=== PATIENT | male | born 1995 | race Caucasian/White ===

== ENCOUNTER 2020-03-30 16:17 | Emergency (ER) | payer OTHER, SELFPAY ==
--- NOTE | ~2020-03-30 | XR_ITS ---
EXAMINATION: XR chest 2V DATE: 03/30/2020 17:08 INDICATION: Cough and fever TECHNIQUE: PA and lateral views of the chest are obtained. COMPARISON: 07/22/2017 FINDINGS: The lungs are free of acute opacities. There is no pleural effusion or pneumothorax. The ca rdiomediastinal silhouette is normal. The visualized bones and soft tissues are unremarkable. IMPRESSION: 1. No acute cardiopulmonary abnormality. Reviewed, dictated and finalized at location [facility]. [facility]
[2020-03-30 16:39] VITALS: BP 111/62; PULSE 104; RESP 18; TEMP 38.1; O2SAT 99
--- NOTE | 2020-03-30 17:06 | ED.GENADULT ---
HPI - General Adult General Chief complaint: Upper Respiratory Infection Stated complaint: URI Time Seen by Provider: 03/30/20 17:00 Source: patient and RN notes reviewed Mode of arrival: ambulatory Limitations: no limitations History of Present Illness HPI narrative: 24-year-old male presents with complaints of upper respiratory infection symptoms, fever, sore throat, cough, intermittent dyspnea and headaches (not the worst of his life) for the past 3 days. Juan reports increasing symptoms over the past 24 hours with increase sore throat, decrease po intake, and high fever. No treatment. Dry cough with intermittent productive cough (yellow-brown phlegm). No chest congestion. Rhinorrhea and nasal congestion. Exacerbating factors consist of swallowing. High fevers, highest 100.5 Fahrenheit, orally with intermittent chills and sweats. No nausea, vomiting, and abdominal pain. Denies chest pain, coughing up blood, jaw pain, dental pain, facial pain, foreign body sensation, and rash. The patient reports he have not been diagnosed with COVID-19. The patient reports he is not waiting for the results of a COVID-19 lab test. The patient reports he do not have weakness or fatigue. The patient reports he do not have a worsening cough. Denies chest pain. The patient reports he do not have any loss of taste or diarrhea. Denies recent traveling. Denies concerns for COVID-19 or exposures been home with limited outdoor exposure except for essential household needs and return home. At this time, patient is not suspected of having COVID-19. Some parts of this dictation were generated by voice recognition software and may contain typographical and/or grammatical inaccuracies. Related Data Allergies Allergy/AdvReac Type Severity Reaction Status Date / Time No Known Allergies Allergy Verified 03/30/20 16:59 Review of Systems Review of Systems: Narrative: CONSTITUTIONAL: Complains of fever. Denies chills, sweats. EYES: Denies visual changes, redness, discharge. ENT: Complains of rhinorrhea, congestion, sore throat. Denies otalgia. CARDIOVASCULAR: Denies chest pain, palpitations, edema. RESPIRATORY: Denies wheezing. Complains of dry cough, intermittent productive cough use. GASTROINTESTINAL: Denies abdominal pain, nausea, vomiting, diarrhea. GENITOURINARY: Denies dysuria, hematuria, abnormal discharge. SKIN: Denies rash or itching. MUSCULOSKELETAL: Denies acute back pain, joint pain, myalgia. NEUROLOGIC: Denies numbness or focal weakness. PSYCHIATRIC: Denies anxiety or depression. All systems reviewed & are unremarkable except as noted in HPI and below PMFSH Past Medical History Medical History (Updated 03/31/20 @ 00:00 by Manuel Dalulu) Anxiety Depression Insomnia disorder Surgical History Surgical History (Updated 03/30/20 @ 17:21 by DOREEN Watkins) No significant past surgical history Family History Family History (Updated 03/30/20 @ 17:52 by DOREEN Watkins) Father Hypertension Mother Hypertension Social History Social History (Updated 03/30/20 @ 17:53 by DOREEN Watkins) Smoking packs per day: 1 Smoking cigarettes per day: 20.0 Years smoked: 8 Smoking pack-years: 8.00 Smoking status: Current every day smoker Tobacco type: cigarettes Second hand tobacco smoke exposure: Yes Alcohol intake: current Substance use: never Additional living arrangements comments: fianc? Gender identity (if verbalized by the patient): Male Comments At time of signature, agree with nurse past medical, surgical, social, and family history. There is no relevant family history pertinent to the presenting complaint. Exam Narrative: Exam Narrative: GENERAL: This is a undernourished, frail frame patient, in no apparent distress. Speaks in full sentences and ambulates with steady gait without dyspnea. HEAD: normocephalic, atraumatic. EYES: PERRL. Sclera clear/white. Vision
== END 2020-03-30 17:47 | disposition home or self-care (01) ==
PROVIDERS: Emergency Provider Nurse Practitioner Family; PCP Physician Assistant
DX: B34.9 Viral infection, unspecified (principal); Z20.828 Contact with and (suspected) exposure to other viral communicable diseases; F17.210 Nicotine dependence, cigarettes, uncomplicated
CPT/HCPCS: 71046; 87081; 87804; 87880; 99213; G0463

== ENCOUNTER 2021-01-15 14:14 | Emergency (ER) | payer BC, MEDICAID, SELFPAY ==
[2021-01-15 14:23] VITALS: BP 115/82; PULSE 86; RESP 16; TEMP 36.9; O2SAT 100
--- NOTE | 2021-01-15 14:33 | ED.URI ---
HPI - URI/Sore Throat General Chief Complaint: Upper Respiratory Infection Stated Complaint: sore throat, feverish Time Seen by Provider: 01/15/21 14:35 Source: patient History of Present Illness HPI Narrative: PATIENT PRESENTS WITH A 3 DAY HISTORY OF SORE THROAT. NASAL CONGESTION AND BODY ACHES. STATES BODY ACHES HAVE RESOLVED. CONTINUES TO HAVE A SORE THROAT. NO TROUBLE SWALLOWING AND NO DROOLING. HAS NOT TAKEN ANYTHING OTC FOR SYMPTOMS. MD elicited complaint: sore throat Related Data Home Medications Medication Instructions Recorded Confirmed No Home Medications 01/15/21 01/15/21 Allergies Allergy/AdvReac Type Severity Reaction Status Date / Time No Known Allergies Allergy Verified 01/15/21 14:41 Review of Systems Review of Systems: CONSTITUTIONAL: Denies fever, chills, or sweats. EYES: Denies visual changes, redness, or discharge. ENT: Denies rhinorrhea, congestion, sore throat, or otalgia. CARDIOVASCULAR: Denies chest pain, palpitations, or edema. RESPIRATORY: Denies cough or dyspnea. GASTROINTESTINAL: Denies abdominal pain, nausea, vomiting, or diarrhea. GENITOURINARY: Denies dysuria or hematuria. SKIN: Denies rash or itching. MUSCULOSKELETAL: Denies back pain, joint pain, or myalgia. NEUROLOGIC: Denies headache, numbness, or weakness. PSYCHIATRIC: Denies anxiety or depression. [facility] Past Medical History Medical History (Updated 01/15/21 @ 14:38 by DOREEN Andrea) Anxiety Depression Insomnia disorder Surgical History Surgical History (Updated 03/30/20 @ 17:21 by DOREEN Watkins) No significant past surgical history Family History Family History (Updated 03/30/20 @ 17:52 by DOREEN Watkins) Father Hypertension Mother Hypertension Social History Social History (Updated 03/30/20 @ 17:53 by DOREEN Watkins) Smoking packs per day: 1 Smoking cigarettes per day: 20.0 Years smoked: 8 Smoking pack-years: 8.00 Smoking status: Current every day smoker Tobacco type: cigarettes Second hand tobacco smoke exposure: Yes Alcohol intake: current Alcohol use details: rarely Substance use: never Additional living arrangements comments: fianc? Gender identity (if verbalized by the patient): Male Sexual Orientation (if Verbalized by the Patient): Straight or Heterosexual Comments At time of signature, agree with nursing past medical, surgical, social and family history. There is no relevant family history pertinent to the presenting complaint Exam Narrative: GENERAL: Well-appearing, well-nourished, and in no acute distress. HEAD: Normocephalic, atraumatic. EYES: PERRLA and EOMI. ENT: Nares clear, no rhinorrhea or epistaxis. Mucous membranes moist. NECK: Supple. CHEST: Clear to auscultation. No respiratory distress. HEART: Regular rate and rhythm. No murmur heard. Normal peripheral pulses. ABDOMEN: Soft, nontender, nondistended, normal active bowel sounds. EXTREMITIES: Normal range of motion. No edema. SKIN: Warm, dry, no rash. NEURO: No focal deficits. Alert and oriented x3. Rachele Coma Scale Eye Opening: Spontaneous 4 [place] Coma Scale Motor: Obeys Commands 6 [place] Coma Scale Verbal: Oriented 5 [place] Coma Scale Total 15 Course Vital Signs Vital signs: Vital Signs Temperature 36.9 C 01/15/21 14:23 Pulse Rate 86 01/15/21 14:23 Respiratory Rate 16 01/15/21 14:23 Blood Pressure 115/82 01/15/21 14:23 Pulse Oximetry 100 01/15/21 14:23 Temperature 36.9 C 01/15/21 14:23 Pulse Rate 86 01/15/21 14:23 Respiratory Rate 16 01/15/21 14:23 Blood Pressure 115/82 01/15/21 14:23 Pulse Oximetry 100 01/15/21 14:23 MDM - URI/Sore Throat Differential Diagnosis Differential diagnosis: Likely upper respiratory infection, croup, otitis media, sinusitis, viral infection, bronchitis, influenza and pharyngitis Critical Care Time Critical Care Time Critical Care Time: No Discharge Plan Disc
[2021-01-15 14:42] VITALS: BP 115/82; PULSE 86; RESP 16; TEMP 36.9; O2SAT 100
[2021-01-16 17:42] LABS: SARS-CoV-2 RNA PCR Negative
== END 2021-01-15 14:49 | disposition home or self-care (01) ==
PROVIDERS: Emergency Provider Nurse Practitioner Family; PCP Physician Assistant
DX: J02.9 Acute pharyngitis, unspecified (principal); F17.210 Nicotine dependence, cigarettes, uncomplicated; Z20.822 Contact with and (suspected) exposure to COVID-19
CPT/HCPCS: 87081; 87880; 99213; C9803; G0463; U0003; U0005

== ENCOUNTER 2021-03-07 13:20 | Emergency (ER) | payer BC, MEDICAID, SELFPAY ==
[2021-03-07 13:30] VITALS: BP 102/65; PULSE 96; RESP 16; TEMP 37.5; O2SAT 99
--- NOTE | 2021-03-07 13:59 | ED.NAVMDI ---
HPI - Nausea/Vomiting/Diarrhea General Chief complaint: Nausea/Vomiting/Diarrhea Stated complaint: nausea dirahhea fever Source: patient and RN notes reviewed Mode of arrival: ambulatory History of Present Illness HPI Narrative: This is a 25-year-old male who presented to urgent care with complaints of nausea vomiting, diarrhea, decreased appetite and a fever. According to patient on Wednesday he developed the symptoms he did take ibuprofen and Tylenol at home to relieve his symptoms with no or little relief. Related Data Allergies Allergy/AdvReac Type Severity Reaction Status Date / Time No Known Allergies Allergy Verified 01/15/21 14:41 Review of Systems Review of Systems: A 14 organ system Review of Systems was performed and pertinent positives included in the HPI, otherwise remaining ROS is negative. [facility] Past Medical History Medical History Anxiety Depression Insomnia disorder Surgical History Surgical History No significant past surgical history Family History Family History Father Hypertension Mother Hypertension Social History Social History Smoking packs per day: 1 Smoking cigarettes per day: 20.0 Years smoked: 8 Smoking pack-years: 8.00 Smoking status: Current every day smoker Tobacco type: cigarettes Second hand tobacco smoke exposure: Yes Alcohol intake: current Alcohol use details: rarely Substance use: never Additional living arrangements comments: fianc? Gender identity (if verbalized by the patient): Male Sexual Orientation (if Verbalized by the Patient): Straight or Heterosexual Exam Narrative: GENERAL: This is a well-nourished, well-developed patient, in no apparent distress. HEAD: normocephalic, atraumatic. EYES: PERRL. Sclera clear/white. Vision is grossly intact. EARS: External ears normal, auditory canals clear and without drainage, TMs normal without perforation. Hearing grossly intact. NOSE: External nose normal with no obvious nasal discharge, nares without redness, no rhinorrhea. THROAT: Mucous membranes moist, posterior pharynx clear. NECK: Neck supple, non-tender without lymphadenopathy, masses or thyromegaly. CARDIOVASCULAR: Regular rate and rhythm without murmurs, gallops, or rubs. RESPIRATORY: Clear to auscultation. Breath sounds equal bilaterally. No wheezes, rales, or rhonchi. GASTROINTESTINAL: Abdomen soft, non-tender, nondistended. Bowel sounds are active. No hepato-splenomegaly, or palpable masses. No guarding. SKIN: warm, intact with no suspicious lesions or rash, good texture and turgor. NEURO: awake, alert, and oriented to person, place and time. There were no obvious focal neurologic abnormalities. Steady gait EXTREMITIES: Normal range of motion. No edema. No calf tenderness. Negative Homans sign bilaterally. BACK: Nontender without deformity or crepitance. No flank tenderness. Course Course Emergency Course: Patient treated for gastritis discharged with Imodium in Zofran instructed to remain hydrated Vital Signs Vital signs: Vital Signs Temperature 99.5 F 03/07/21 13:30 Pulse Rate 96 03/07/21 13:30 Respiratory Rate 16 03/07/21 13:30 Blood Pressure 102/65 03/07/21 13:30 Pulse Oximetry 99 03/07/21 13:30 Temperature 99.5 F 03/07/21 13:30 Pulse Rate 96 03/07/21 13:30 Respiratory Rate 16 03/07/21 13:30 Blood Pressure 102/65 03/07/21 13:30 Pulse Oximetry 99 03/07/21 13:30 MDM - Nausea/Vomiting/Diarrhea Differential Diagnosis Differential diagnosis: Likely gastroenteritis, clostridium difficile infection, drug-induced nausea and vomiting and dehydration Discharge Plan Discharge Clinical Impression: Gastroenteritis Patient Disposition: Home, Self-Care Condit
== END 2021-03-07 14:04 | disposition home or self-care (01) ==
PROVIDERS: Emergency Provider Nurse Practitioner; PCP Physician Assistant
DX: K52.9 Noninfective gastroenteritis and colitis, unspecified (principal); F17.210 Nicotine dependence, cigarettes, uncomplicated
CPT/HCPCS: 99213; G0463

== ENCOUNTER 2021-06-05 18:38 | Emergency (ER) | payer BC, MEDICAID, SELFPAY ==
--- NOTE | 2021-06-05 18:52 | ED.URI ---
HPI - URI/Sore Throat General Chief Complaint: Upper Respiratory Infection Stated Complaint: cough/cp/sore throat/weakness Time Seen by Provider: 06/05/21 18:52 Source: patient Mode of arrival: ambulatory Limitations: no limitations History of Present Illness HPI Narrative: 25 yo M presents with c/o sore throat that started last night. Today woke up with congestion, runny nose, cough, fatigue, headache. no fever. denies N/V/D. took tylenol this AM. all systems reviewed and negative except as noted above. Related Data Home Medications Medication Instructions Recorded Confirmed No Home Medications 06/05/21 06/05/21 Allergies Allergy/AdvReac Type Severity Reaction Status Date / Time No Known Allergies Allergy Verified 06/05/21 19:12 Review of Systems Review of Systems: CONSTITUTIONAL: Denies fever, chills, or sweats. EYES: Denies visual changes, redness, or discharge. ENT: Reports rhinorrhea, congestion, sore throat. Denies otalgia. CARDIOVASCULAR: Denies chest pain, palpitations, or edema. RESPIRATORY: Reports cough. Denies dyspnea. GASTROINTESTINAL: Denies abdominal pain, nausea, vomiting, or diarrhea. GENITOURINARY: Denies dysuria or hematuria. SKIN: Denies rash or itching. MUSCULOSKELETAL: Denies back pain, joint pain, or myalgia. NEUROLOGIC: Denies headache, numbness, or weakness. PSYCHIATRIC: Denies anxiety or depression. All other systems reviewed are negative, except as documented in HPI. [facility] Past Medical History Medical History Anxiety Depression Insomnia disorder Surgical History Surgical History No significant past surgical history Family History Family History Father Hypertension Mother Hypertension Social History Social History Smoking packs per day: 1 Smoking cigarettes per day: 20.0 Years smoked: 8 Smoking pack-years: 8.00 Smoking status: Current every day smoker Tobacco type: cigarettes Second hand tobacco smoke exposure: Yes Alcohol intake: current Alcohol use details: rarely Substance use: never Additional living arrangements comments: fisara? Gender identity (if verbalized by the patient): Male Sexual Orientation (if Verbalized by the Patient): Straight or Heterosexual Comments At time of signature, agree with nursing past medical, surgical, social and family history. There is no relevant family history pertinent to the presenting complaint. Exam Narrative: GENERAL: This is a well-nourished, well-developed patient, in no apparent distress. HEAD: normocephalic, atraumatic. EYES: PERRL. Sclera clear/white. Vision is grossly intact. EARS: External ears normal, auditory canals clear and without drainage, TMs normal without perforation. Hearing grossly intact. NOSE: External nose normal , nares without redness. Clear nasal drainage from both naris. THROAT: Mucous membranes moist. Erythema to posterior pharynx with clear postnasal drainage. NECK: Neck supple, non-tender without lymphadenopathy, masses or thyromegaly. CARDIOVASCULAR: Regular rate and rhythm without murmurs, gallops, or rubs. RESPIRATORY: Clear to auscultation. Breath sounds equal bilaterally. No wheezes, rales, or rhonchi. GASTROINTESTINAL: Abdomen soft, non-tender, nondistended. Bowel sounds are active. No hepato-splenomegaly, or palpable masses. No guarding. SKIN: warm, Dry, intact with no suspicious lesions or rash, good texture and turgor. NEURO: awake, alert, and oriented to person, place and time. There were no obvious focal neurologic abnormalities. EXTREMITIES: No joint tenderness, effusion, or edema noted. No calf tenderness. Negative Homans sign bilaterally. BACK: Nontender without deformity. No CVA tenderness. Course Course Level of Care: Expr
[2021-06-05 18:53] VITALS: BP 129/78; PULSE 88; RESP 16; TEMP 37.1; O2SAT 100
== END 2021-06-05 19:36 | disposition home or self-care (01) ==
PROVIDERS: Emergency Provider Nurse Practitioner Family; PCP Physician Assistant
DX: J06.9 Acute upper respiratory infection, unspecified (principal); Z20.822 Contact with and (suspected) exposure to COVID-19; F17.210 Nicotine dependence, cigarettes, uncomplicated
CPT/HCPCS: 87426; 87804; 99213; C9803; G0463

== ENCOUNTER 2021-08-24 12:54 | Emergency (ER) | payer BC, MEDICAID, SELFPAY ==
[2021-08-24 12:59] VITALS: BP 131/79; PULSE 110; RESP 16; TEMP 38.3; O2SAT 100
--- NOTE | 2021-08-24 13:07 | ED.URI ---
HPI - URI/Sore Throat General Chief Complaint: Upper Respiratory Infection Stated Complaint: fever chest pain with cough Time Seen by Provider: 08/24/21 13:02 Source: patient Mode of arrival: ambulatory Limitations: no limitations History of Present Illness HPI Narrative: Mr. Aldana is a 26-year-old male patient presenting to the clinic today with complaints of fever, cough, sore throat, .and chest discomfort with cough x3 days. He reports he has had exposure to his son who is has bronchitis. No known exposure to anyone with COVID, strep, or influenza Related Data Allergies Allergy/AdvReac Type Severity Reaction Status Date / Time No Known Allergies Allergy Verified 08/24/21 13:18 Review of Systems Review of Systems: Pertinent positives per HPI. Patient denies any, rash, headache, visual changes, dizziness, runny nose, sore throat, shortness of breath, palpitations, nausea, vomiting, diarrhea, constipation, abdominal pain, or any urinary issues. PMFSH Past Medical History Medical History Anxiety Depression Insomnia disorder Surgical History Surgical History No significant past surgical history Family History Family History Father Hypertension Mother Hypertension Social History Social History Smoking packs per day: 1 Smoking cigarettes per day: 20.0 Years smoked: 8 Smoking pack-years: 8.00 Smoking status: Current every day smoker Tobacco type: cigarettes Second hand tobacco smoke exposure: Yes Alcohol intake: current Alcohol use details: rarely Substance use: never Additional living arrangements comments: fianc? Gender identity (if verbalized by the patient): Male Sexual Orientation (if Verbalized by the Patient): Straight or Heterosexual Comments At the time of my signature, I reviewed and agree with the nursing past medical, surgical, social, and family history. There is no relevant family history pertinent to the patient complaint. Exam Narrative: General: Well-developed, well nourished, mildly ill-appearing Head: Normocephalic, atraumatic Eyes: Pupils equally round and reactive to light bilaterally, EOM intact, sclera and conjunctive clear, no discharge, lids normal Ears: TMs intact and clear, ear canals clear, no drainage, grossly hearing normal. Nose: Nares patent, clear nasal discharge, mild inflammation, no sinus tenderness. Mouth: Oropharynx without lesions or masses, good dentition, MMM. Oropharynx red Neck: Supple, trachea midline, mild enlargement of anterior cervical nodes, no thyroid masses or goiter palpable. Cardio: Regular rate and rhythm, s1 and s2 normal, no murmur appreciated. Resp: Clear to auscultation bilaterally anteriorly and posteriorly, no rhonchi, rales, wheezing or rubs Course Course Emergency Course: Portions of this record may have been created with voice recognition software. Level of Care: Express Care Visit Vital Signs Vital signs: Vital Signs Temperature 38.3 C H 08/24/21 12:59 Pulse Rate 110 H 08/24/21 12:59 Respiratory Rate 16 08/24/21 12:59 Blood Pressure 131/79 08/24/21 12:59 Pulse Oximetry 100 08/24/21 12:59 Oxygen Delivery Room Air 08/24/21 12:59 Temperature 38.3 C H 08/24/21 12:59 Pulse Rate 110 H 08/24/21 12:59 Respiratory Rate 16 08/24/21 12:59 Blood Pressure 131/79 08/24/21 12:59 Pulse Oximetry 100 08/24/21 12:59 Oxygen Delivery Room Air 08/24/21 12:59 Vital signs reviewed MDM - URI/Sore Throat MDM Narrative Medical decision making narrative: At the time of visit patient is resting comfortably on the exam table. Strep test was completed and was positive in the clinic. Patient had negative COVID testing and influenza testing. I w
== END 2021-08-24 13:30 | disposition home or self-care (01) ==
PROVIDERS: Emergency Provider Nurse Practitioner Family; PCP Internal Medicine
DX: J02.0 Streptococcal pharyngitis (principal); Z20.822 Contact with and (suspected) exposure to COVID-19; F17.210 Nicotine dependence, cigarettes, uncomplicated
CPT/HCPCS: 87426; 87804; 87880; 99213; C9803; G0463

== ENCOUNTER 2021-12-01 11:53 | Emergency (ER) | payer BC, MEDICAID, SELFPAY ==
[2021-12-01 12:01] VITALS: BP 114/70; PULSE 108; RESP 16; TEMP 37.3; O2SAT 100
--- NOTE | 2021-12-01 12:26 | ED.URI ---
HPI - URI/Sore Throat General Chief Complaint: Upper Respiratory Infection Stated Complaint: congestion cough fever Time Seen by Provider: 12/01/21 12:17 Source: patient, RN notes reviewed and old records reviewed Mode of arrival: ambulatory Limitations: no limitations History of Present Illness HPI Narrative: 26 year od male accompanied by and child presents to express care with complaints of cough, fevers, and congestion. Patient reports that he had fever up to 101.7F last evening and today he had fever of 101.3F and has been taking ibuprofen and flonase. Patient states that he has had cough with congestion for 2 weeks is cough up some yellow tinged mucous and sinus drainage is also colored. Patient has not had COVID vaccinations. Patient is daily smoker of 1ppd for 10 years. MD elicited complaint: fever, cough, rhinorrhea and nasal congestion Onset (ago): week(s) (2) Treatments prior to arrival: ibuprofen and other (flonase) Related Data Allergies Allergy/AdvReac Type Severity Reaction Status Date / Time No Known Allergies Allergy Verified 12/01/21 12:20 Review of Systems Review of Systems: CONSTITUTIONAL: Positive for fever, chills, or sweats. EYES: Denies visual changes, redness, or discharge. ENT: Positive for rhinorrhea, congestion, no sore throat, or otalgia. CARDIOVASCULAR: Denies chest pain, palpitations, or edema. RESPIRATORY: Positive for cough denies dyspnea. GASTROINTESTINAL: Denies abdominal pain, nausea, vomiting, or diarrhea. GENITOURINARY: Denies dysuria or hematuria. SKIN: Denies rash or itching. MUSCULOSKELETAL: Denies back pain, joint pain, or myalgia. NEUROLOGIC: Denies headache, numbness, or weakness. PSYCHIATRIC:history of anxiety or depression. All systems reviewed & are unremarkable except as noted in HPI and below PMFSH Past Medical History Medical History Anxiety Depression Insomnia disorder Surgical History Surgical History No significant past surgical history Family History Family History Father Hypertension Mother Hypertension Social History Social History (Updated 12/03/21 @ 19:54 by Jie Agosto NP) Smoking packs per day: 1 Smoking cigarettes per day: 20.0 Years smoked: 10 Smoking pack-years: 10.00 Smoking status: Current every day smoker Tobacco type: cigarettes Second hand tobacco smoke exposure: Yes Alcohol intake: current Alcohol use details: rarely Substance use: never Living arrangements: with family Additional living arrangements comments: fianc? Gender identity (if verbalized by the patient): Male Sexual Orientation (if Verbalized by the Patient): Straight or Heterosexual Comments At time of signature, agree with nursing past medical, surgical, social and family history. There is no relevant family history pertinent to the presenting complaint Exam Narrative: GENERAL: ill-appearing, fair-nourished, and in no acute distress. HEAD: Normocephalic, atraumatic. EYES: PERRLA and EOMI. ENT: Nares red and swollen with yellowish rhinorrhea no epistaxis. Mucous membranes moist.TM's normal with dull light reflex, throat red with no lesions or tosnil swelling post nasal discharge noted NECK: Supple. no lymphadenopathy CHEST: scattered wheezes on auscultation. No respiratory distress.cough which is productive. SAO2 100% on room air HEART: Regular rate and rhythm. No murmur heard. Normal peripheral pulses. ABDOMEN: Soft and nontender, nondistended, normal active bowel sounds. EXTREMITIES: Normal range of motion. No edema. SKIN: Warm, dry, no rash. NEURO: No focal deficits. Alert and oriented x3. Course Course Level of Care: Express Care Visit Vital Signs Vital signs: Vital Signs Temperature 37.3 C 12/01/21 12:01 Pulse Rate 108 H 12/01/21 12:01 Re
--- NOTE | 2021-12-01 12:46 | ED.URI ---
HPI - URI/Sore Throat General Chief Complaint: Upper Respiratory Infection Stated Complaint: congestion cough fever Time Seen by Provider: 12/01/21 12:17 Source: patient, RN notes reviewed and old records reviewed Mode of arrival: ambulatory Limitations: no limitations History of Present Illness HPI Narrative: Cough intermittent fevers Related Data Allergies Allergy/AdvReac Type Severity Reaction Status Date / Time No Known Allergies Allergy Verified 12/01/21 12:20 Review of Systems Review of Systems: CONSTITUTIONAL: Denies fever, chills, or sweats. EYES: Denies visual changes, redness, or discharge. ENT: Denies rhinorrhea, congestion, sore throat, or otalgia. CARDIOVASCULAR: Denies chest pain, palpitations, or edema. RESPIRATORY: Denies cough or dyspnea. GASTROINTESTINAL: Denies abdominal pain, nausea, vomiting, or diarrhea. GENITOURINARY: Denies dysuria or hematuria. SKIN: Denies rash or itching. MUSCULOSKELETAL: Denies back pain, joint pain, or myalgia. NEUROLOGIC: Denies headache, numbness, or weakness. PSYCHIATRIC: Denies anxiety or depression. [facility] Past Medical History Medical History Anxiety Depression Insomnia disorder Surgical History Surgical History No significant past surgical history Family History Family History Father Hypertension Mother Hypertension Social History Social History (Updated 12/03/21 @ 19:54 by Jie Agosto NP) Smoking packs per day: 1 Smoking cigarettes per day: 20.0 Years smoked: 10 Smoking pack-years: 10.00 Smoking status: Current every day smoker Tobacco type: cigarettes Second hand tobacco smoke exposure: Yes Alcohol intake: current Alcohol use details: rarely Substance use: never Living arrangements: with family Additional living arrangements comments: fianc? Gender identity (if verbalized by the patient): Male Sexual Orientation (if Verbalized by the Patient): Straight or Heterosexual Comments At time of signature, agree with nursing past medical, surgical, social and family history. There is no relevant family history pertinent to the presenting complaint Exam Narrative: GENERAL: Well-appearing, well-nourished, and in no acute distress. HEAD: Normocephalic, atraumatic. EYES: PERRLA and EOMI. ENT: Nares clear, no rhinorrhea or epistaxis. Mucous membranes moist. NECK: Supple. CHEST: Clear to auscultation. No respiratory distress. HEART: Regular rate and rhythm. No murmur heard. Normal peripheral pulses. ABDOMEN: Soft, nontender, nondistended, normal active bowel sounds. EXTREMITIES: Normal range of motion. No edema. SKIN: Warm, dry, no rash. NEURO: No focal deficits. Alert and oriented x3. Course Vital Signs Vital signs: Vital Signs Temperature 37.3 C 12/01/21 12:01 Pulse Rate 108 H 12/01/21 12:01 Respiratory Rate 16 12/01/21 12:01 Blood Pressure 114/70 12/01/21 12:01 Pulse Oximetry 100 12/01/21 12:01 Oxygen Delivery Room Air 12/01/21 12:01 Temperature 37.3 C 12/01/21 12:01 Pulse Rate 108 H 12/01/21 12:01 Respiratory Rate 16 12/01/21 12:01 Blood Pressure 114/70 12/01/21 12:01 Pulse Oximetry 100 12/01/21 12:01 Oxygen Delivery Room Air 12/01/21 12:01 Critical Care Time Critical Care Time Critical Care Time: No Discharge Plan Discharge Clinical Impression: Upper respiratory infection, Bronchitis Patient Disposition: Home, Self-Care Condition: Stable Instructions: Antibiotic Form, Upper Respiratory Infection (ED), Acute Bronchitis (ED) Additional Instructions: Increase fluids especially juices and water [id number] cough and cold medicine of your choice for your symptoms Continue your inhaler/nebulizer as directed Steroids as directed--take with food heat to the face 20
== END 2021-12-01 12:55 | disposition home or self-care (01) ==
PROVIDERS: Emergency Provider Registered Nurse; PCP Physician Assistant
DX: J06.9 Acute upper respiratory infection, unspecified (principal); J40 Bronchitis, not specified as acute or chronic; F17.210 Nicotine dependence, cigarettes, uncomplicated
CPT/HCPCS: 99213; G0463

== ENCOUNTER 2021-12-05 18:34 | Emergency (ER) | payer BC, MEDICAID, SELFPAY ==
--- NOTE | ~2021-12-05 | XR_ITS ---
EXAMINATION: XR chest 2V DATE: 12/05/2021 18:52 INDICATION: Cough and fever TECHNIQUE: PA and lateral views of the chest were obtained. COMPARISON: Chest radiograph dated 03/30/2020 FINDINGS: Subtle airspace opacities in the inferior right upper lobe along the minor fissure and at the right l maida base at the costophrenic angle. No other airspace opacities, pulmonary edema, pleural effusion or pneumothorax. The cardiomediastinal silhouette is normal. Visualized bones and soft tissues are unre markable. IMPRESSION: 1. New opacities in the right upper lobe and at the right costophrenic angle which could represent pn eumonia or atelectasis. Reviewed, dictated and finalized at location A. IMPRESSION: 1. New opacities in the right upper lobe and at the right costophrenic angle wh ich could represent pneumonia or atelectasis.
[2021-12-05 18:40] VITALS: BP 114/75; PULSE 103; RESP 16; TEMP 37.4; O2SAT 100
--- NOTE | 2021-12-05 19:01 | ED.URI ---
HPI - URI/Sore Throat General Chief Complaint: Upper Respiratory Infection Stated Complaint: uri Source: patient and RN notes reviewed Mode of arrival: ambulatory Limitations: no limitations History of Present Illness HPI Narrative: 26-year-old male presented for complaint of cough, shortness of breath and chest congestion for about 2 weeks. He was [facility], diagnosed with bronchitis and prescribed him erythromycin, steroid and inhaler. He endorses feeling better for a few days but then symptoms worsened. He admits to not completing the steroids as directed. Endorses intermittent fevers. MD elicited complaint: cough Related Data Allergies Allergy/AdvReac Type Severity Reaction Status Date / Time No Known Allergies Allergy Verified 12/05/21 18:55 Review of Systems Review of Systems: CONSTITUTIONAL: Reports malaise, chills, sweats, fever EYES: Denies visual changes, redness, or discharge ENT: Reports rhinorrhea, congestion, sinus pain, otalgia, sore throat CARDIOVASCULAR: Denies chest pain, palpitations, edema RESPIRATORY: Reports cough, dyspnea GASTROINTESTINAL: Denies abdominal pain, nausea, vomiting, diarrhea SKIN: Denies rash or itching MUSCULOSKELETAL: Endorses myalgia NEUROLOGIC: Denies headache PMFSH Past Medical History Medical History Anxiety Depression Insomnia disorder Surgical History Surgical History No significant past surgical history Family History Family History Father Hypertension Mother Hypertension Social History Social History Smoking packs per day: 1 Smoking cigarettes per day: 20.0 Years smoked: 10 Smoking pack-years: 10.00 Smoking status: Current every day smoker Tobacco type: cigarettes Second hand tobacco smoke exposure: Yes Alcohol intake: current Alcohol use details: rarely Substance use: never Additional living arrangements comments: fianc? Gender identity (if verbalized by the patient): Male Sexual Orientation (if Verbalized by the Patient): Straight or Heterosexual Exam Narrative: GENERAL: well-appearing EYES: conjunctivae clear ENT: Mucous membranes moist. TMs pearly aly with dull light reflex bilaterally; no tragal tenderness. Oropharynx erythematous without lesions or exudate, no drooling, no hoarseness, no trismus, uvula midline. CHEST: Right lung lowry coarse. No respiratory distress, speaks in full sentences. HEART: Regular rate and rhythm. No murmur heard. SKIN: Warm, dry, no rash. NEURO: Alert and oriented x3. PSYCH: Normal mood and affect Course Course Emergency Course: Patient is aware of diagnosis, understands and agrees to treatment plan. Anticipatory guidance given. Patient agrees to follow-up as directed and is aware of reasons to seek care at the emergency department. Portions of this record may have been created with voice recognition software Level of Care: Express Care Visit Vital Signs Vital signs: Vital Signs Temperature 99.3 F 12/05/21 18:40 Pulse Rate 103 H 12/05/21 18:40 Respiratory Rate 16 12/05/21 18:40 Blood Pressure 114/75 12/05/21 18:40 Pulse Oximetry 100 12/05/21 18:40 Oxygen Delivery Room Air 12/05/21 18:40 Temperature 99.3 F 12/05/21 18:40 Pulse Rate 103 H 12/05/21 18:40 Respiratory Rate 16 12/05/21 18:40 Blood Pressure 114/75 12/05/21 18:40 Pulse Oximetry 100 12/05/21 18:40 Oxygen Delivery Room Air 12/05/21 18:40 reviewed MDM - URI/Sore Throat MDM Narrative Medical decision making narrative: Results of CXR reviewed with pt. Will add course of doxy and treat for pna. v/u. He informed me he did not fill the previously prescribed steroid, took a few of his girlfriend's prednisone 10mg tablets. Will send Rx
== END 2021-12-05 19:20 | disposition home or self-care (01) ==
PROVIDERS: Emergency Provider Nurse Practitioner Family
DX: J18.1 Lobar pneumonia, unspecified organism (principal); F17.210 Nicotine dependence, cigarettes, uncomplicated
CPT/HCPCS: 71046; 99213; G0463

== ENCOUNTER 2022-10-21 17:11 | Emergency (ER) | payer BC, MEDICAID, SELFPAY ==
--- NOTE | ~2022-10-21 | XR_ITS ---
EXAMINATION: XR chest 2V 10/21/2022 18:18 INDICATION: Cough PROCEDURE: 2 view chest COMPARISON: 12/05/2021 FINDINGS: The lungs are clear. The cardiomediastinal silhouette is within normal limits. There are no pleural effusions. There is no pneumothorax suspected. IMPRESSION: 1: NO ACUTE CARDIOPULMONARY DISEASE. Reviewed, dictated and finalized at location A.
[2022-10-21 17:16] VITALS: BP 113/67; PULSE 99; RESP 18; TEMP 36.7; O2SAT 98
--- NOTE | 2022-10-21 18:08 | ED.URI ---
HPI - URI/Sore Throat General Chief Complaint: Upper Respiratory Infection Stated Complaint: cough/hurts to cough Source: patient and RN notes reviewed History of Present Illness HPI Narrative: 27-year-old male presents to the [facility] complaining of cough, fever, chest pain. Patient stated about 8 days ago he developed a cough, congestion, sore throat. Since then the cough and congestion has got worsened states it has moved into his chest. Patient states he has constant chest pain that he describes as congestion in his chest. Patient states the pain is worse when he takes a deep breath and when he coughs. Patient denies any shortness of breath. Patient does report congestion to his nose and still having a sore throat. States he is coughing yellow tinged sputum as well and states that he had a 100.3 fever that he took ibuprofen for it. Patient states he is a pack-a-day smoker for the last 10 years has history of pneumonia. Related Data Allergies Allergy/AdvReac Type Severity Reaction Status Date / Time No Known Allergies Allergy Verified 10/21/22 17:32 Review of Systems Review of Systems: CONSTITUTIONAL: Denies fever, chills, or sweats. EYES: Denies visual changes, redness, or discharge. ENT: Denies otalgia. Positive for nasal congestion and sore throat. CARDIOVASCULAR: Positive for chest pain. Negative for palpitations or edema. RESPIRATORY: Positive for coughing negative for dyspnea. GASTROINTESTINAL: Denies abdominal pain, nausea, vomiting, or diarrhea. GENITOURINARY: Denies dysuria or hematuria. SKIN: Denies rash or itching. MUSCULOSKELETAL: Denies back pain, joint pain, or myalgia. NEUROLOGIC: Denies headache, numbness, or weakness. Pertinent positives per HPI. [facility] Past Medical History Medical History Anxiety Depression Insomnia disorder Surgical History Surgical History No significant past surgical history Family History Family History Father Hypertension Mother Hypertension Social History Social History Smoking packs per day: 1 Smoking cigarettes per day: 20.0 Years smoked: 10 Smoking pack-years: 10.00 Smoking status: Current every day smoker Tobacco type: cigarettes Second hand tobacco smoke exposure: Yes Alcohol intake: current Alcohol use details: rarely Substance use: never Living arrangements: with family Additional living arrangements comments: fianc? Occupation/Education: occupation Gender identity (if verbalized by the patient): Male Sexual Orientation (if Verbalized by the Patient): Straight or Heterosexual Comments At the time of my signature, I reviewed and agree with the nursing past medical, surgical, social, and family history. There is no relevant family history pertinent to the patient complaint. Exam Narrative: GENERAL: This is a well-nourished, well-developed patient, in no apparent distress. HEAD: normocephalic, atraumatic. EYES: Sclera clear/white. Vision is grossly intact. EARS: External ears normal, auditory canals clear and without drainage, TMs normal without perforation. Hearing grossly intact. NOSE: External nose normal with no obvious nasal discharge, nares with minor erythema, no rhinorrhea. THROAT: Mucous membranes moist, posterior pharynx erythemic with postnasal drip. NECK: Neck supple, non-tender without lymphadenopathy, masses or thyromegaly. CARDIOVASCULAR: Regular rate and rhythm without murmurs, gallops, or rubs. RESPIRATORY: There is slight wheezing to the left upper posterior lobe to auscultation. All other lobes are vesicular without abnormal breath sounds. Breath sounds equal bilaterally. GASTROINTESTINAL: Abdomen soft, non-tender, nondistended. Bowel sounds are active. No hepato-s
== END 2022-10-21 18:45 | disposition home or self-care (01) ==
PROVIDERS: Emergency Provider Nurse Practitioner Family; PCP Physician Assistant
DX: J40 Bronchitis, not specified as acute or chronic (principal); F17.210 Nicotine dependence, cigarettes, uncomplicated; F41.9 Anxiety disorder, unspecified; F32.A Depression, unspecified
CPT/HCPCS: 71046; 99213; G0463

== ENCOUNTER 2023-03-28 13:15 | Emergency (ER) | payer BC, MEDICAID, SELFPAY ==
[2023-03-28 13:34] VITALS: BP 113/78; PULSE 99; RESP 16; TEMP 37.1; O2SAT 98
--- NOTE | 2023-03-28 13:53 | ED.GENADULT ---
HPI - General Adult General Chief complaint: Upper Respiratory Infection Stated complaint: fever/cough/headache/achey Source: patient, RN notes reviewed and old records reviewed Mode of arrival: ambulatory Limitations: no limitations History of Present Illness HPI narrative: 27-year-old male patient presents to [facility] with complaints cough, congestion, myalgia, fever this started Wednesday night. Patient denies shortness of breath, chest pain, dizziness, weakness. Patient taking [id number] medications with little relief MD complaint: cough, congestion Onset (ago): day(s) (2) Related Data Allergies Allergy/AdvReac Type Severity Reaction Status Date / Time No Known Allergies Allergy Verified 10/21/22 17:32 Review of Systems Constitutional: Constitutional: Reports no additional constitutional complaints, Reports body ache(s), Denies chills, Reports fatigue, Reports fever(s) and Denies headache(s) Eyes: Eyes: Reports no additional eye complaints and Denies blurry vision ENT: Reports system reviewed and no additional complaints, except as documented, Denies vertigo, Denies dizziness, Denies ear discharge, Denies otalgia, Denies facial pain, Denies headache(s), Reports nasal congestion, Reports nasal discharge, Denies sinus pain, Denies sinus pressure and Denies sore throat Cardiovascular: Cardiovascular: Reports no additional cardiovascular complaints, Denies chest pain, Denies chest pain at rest, Denies rapid heart rate and Denies dyspnea Respiratory: Respiratory: Reports no additional respiratory complaints, Reports chest congestion, Reports cough, Denies pain on inspiration, Denies pain with cough and Denies dyspnea Gastrointestinal: Gastrointestinal: Denies abdominal pain, Denies diarrhea, Denies nausea and Denies vomiting Integumentary/Breasts: Skin/Breast: Denies rash Neurologic: Reports system reviewed and no additional complaints, except as documented, Denies vertigo, Denies dizziness and Denies headache(s) Endocrine: Endocrine: Denies fatigue PMFSH Past Medical History Medical History Anxiety Depression Insomnia disorder Surgical History Surgical History No significant past surgical history Family History Family History Father Hypertension Mother Hypertension Social History Social History Smoking packs per day: 1 Smoking cigarettes per day: 20.0 Years smoked: 10 Smoking pack-years: 10.00 Smoking status: Current every day smoker Tobacco type: cigarettes Second hand tobacco smoke exposure: Yes Alcohol intake: current Alcohol use details: rarely Substance use: never Living arrangements: with family Additional living arrangements comments: fianc? Occupation/Education: occupation Gender identity (if verbalized by the patient): Male Sexual Orientation (if Verbalized by the Patient): Straight or Heterosexual Comments At the time of my signature, I reviewed and agree with the nursing past medical, surgical, social, and family history. There is no relevant family history pertinent to the patient complaint. Exam Const: General: cooperative, healthy appearing, no acute distress and well nourished Nutritional Appearance: well nourished Orientation/consciousness: patient oriented x3 Limitations: no limitations HENMT: Head: normal to inspection and normocephalic Ears: external ears normal, TM's normal bilaterally, mastoids normal and Abnormal EAC present Face/Nose/Sinus: normal facial exam Face and sinus: normal facial exam Mouth: Yes Normal oral and palatal mucosa present, Yes oropharynx normal and Yes moist mucous membranes Throat: tonsils normal, uvula midline, posterior oropharynx abnormal erythema and no uvular edema Eyes: General: appearan
== END 2023-03-28 14:05 | disposition home or self-care (01) ==
PROVIDERS: Emergency Provider Registered Nurse; PCP Physician Assistant
DX: J10.1 Influenza due to other identified influenza virus with other respiratory manifestations (principal); F17.210 Nicotine dependence, cigarettes, uncomplicated; Z20.822 Contact with and (suspected) exposure to COVID-19
CPT/HCPCS: 87426; 87804; 99213; C9803; G0463

== ENCOUNTER 2024-01-18 16:46 | Emergency (ER) | payer SELFPAY ==
[2024-01-18 16:52] VITALS: BP 128/82; PULSE 96; RESP 16; TEMP 36.8; O2SAT 99
--- NOTE | 2024-01-18 17:17 | ED.URI ---
HPI - URI/Sore Throat General Chief Complaint: Upper Respiratory Infection Stated Complaint: Sore Throat/Chest Congestion/Fever Time Seen by Provider: 01/18/24 17:10 Source: patient, RN notes reviewed and old records reviewed Mode of arrival: ambulatory Limitations: no limitations History of Present Illness HPI Narrative: 28 year old male presents to [place] [facility] with complaints of 2-3 day history of acute cough with congestion and expectoration of yellow phlegm. He reports that he also has a sore throat and hs been having intermittent fevers. Patient reports that he has had a headache and has some body aches with general malaise. Patient reports that he has been taking Ibuprofen for his symptoms. MD elicited complaint: cough and sore throat Onset (ago): day(s) (3) Pain scale (0-10): 4 Able to tolerate fluids by mouth: Yes Treatments prior to arrival: ibuprofen Related Data Allergies Allergy/AdvReac Type Severity Reaction Status Date / Time No Known Allergies Allergy Verified 01/18/24 16:50 Review of Systems Review of Systems: CONSTITUTIONAL: Reports malaise, chills, sweats, or fever. EYES: Denies visual changes, redness, or discharge. ENT: Reports rhinorrhea, congestion, sinus pain, no otalgia and positive for sore throat. CARDIOVASCULAR: Denies chest pain, palpitations, or edema. RESPIRATORY: Reports cough.? Denies dyspnea. GASTROINTESTINAL: Denies abdominal pain, nausea, vomiting, diarrhea SKIN: Denies rash or itching. MUSCULOSKELETAL: Reports myalgia. NEUROLOGIC: Reports headache. All systems reviewed & are unremarkable except as noted in HPI and below PMFSH Past Medical History Medical History Anxiety Back pain Bronchitis Depression Insomnia disorder Surgical History Surgical History No significant past surgical history Family History Family History Father Hypertension Mother Hypertension Social History Social History Smoking packs per day: 1 Smoking cigarettes per day: 20.0 Years smoked: 10 Smoking pack-years: 10.00 Smoking status: Current every day smoker Tobacco type: cigarettes Second hand tobacco smoke exposure: Yes Alcohol intake: current Alcohol use details: rarely Substance use: never Living arrangements: with family Additional living arrangements comments: fianc? Occupation/Education: occupation Gender identity (if verbalized by the patient): Male Sexual Orientation (if Verbalized by the Patient): Straight or Heterosexual Comments At time of signature, agree with nursing past medical, surgical, social and family history. There is no relevant family history pertinent to the presenting complaint Exam Narrative: GENERAL: Well-appearing, well-nourished, and in no acute distress. HEAD: Normocephalic EYES: PERRLA, conjunctivae clear ENT: Nares clear, turbinates edematous and erythematous, clear discharge. Mucous membranes moist. TM pearly aly with dull light reflex bilaterally; no tragal tenderness. Oropharynx erythematous without lesions. Tonsils not enlarged and without exudate, no drooling, no hoarseness, no trismus, uvula midline.post nasal drainage NECK: Supple. No lymphadenopathy CHEST: Clear to auscultation, breath sounds equal. No wheezing, rhonchi, rales, or stridor. No respiratory distress, speaks in full sentences.productive cough SAO2 99% on room air HEART: Regular rate and rhythm. No murmur heard. SKIN: Warm, dry, no rash. NEURO: Alert and oriented x3. PSYCH: Normal mood and affect Course Course Emergency Course: Patient is aware of diagnosis, understands and agrees to treatment plan.? Anticipatory guidance given.? Patient agrees to follow-up as directed and is aware of reasons to seek ca
[2024-01-18 17:25] LABS: EDCOVIDSCREEN Negative (Negative); EDSTREPNEGPOS1 Negative (Negative)
[2024-01-18 17:26] LABS: EDINFLUASCREEN Negative (Negative); EDINFLUBSCREEN Negative (Negative)
== END 2024-01-18 17:51 | disposition home or self-care (01) ==
PROVIDERS: Emergency Provider Registered Nurse; PCP Physician Assistant
DX: R05.9 Cough, unspecified (principal); J06.9 Acute upper respiratory infection, unspecified; Z20.822 Contact with and (suspected) exposure to COVID-19; F17.210 Nicotine dependence, cigarettes, uncomplicated
CPT/HCPCS: 87081; 87426; 87804; 87880; 99213; G0463

== ENCOUNTER 2024-04-09 11:34 | Emergency (ER) | payer SELFPAY ==
[2024-04-09 11:38] VITALS: BP 107/75; PULSE 99; RESP 20; TEMP 36.4; O2SAT 99
--- NOTE | 2024-04-09 11:49 | ED_ITS ---
HPI - URI/Sore Throat General Chief Complaint: Upper Respiratory Infection Stated Complaint: cough/nose/fever/headache Time Seen by Provider: 04/09/24 11:49 Source: patient and RN notes reviewed Mode of arrival: ambulatory Limitations: no limitations History of Present Illness HPI Narrative: 28 year old male who presents to express care with complaints of 5 day history of cough, nasal drainage and headache. Patient reports that he started running a fever last night and did have fever this morning of 101F, has taken some Ibuprofen for his discomfort and fevers. Patient reports that his chest hurts some when he coughs and has stuffy nose with some expectoration of yellow mucous and feels achy. Patient is daily user of tobacco. MD elicited complaint: fever, cough, rhinorrhea, nasal congestion and other (headache and feels achy.) Onset (ago): day(s) (initial symptoms 5 days now fevers since yesterday) Consistency: constant Severity: moderate Description of mucous: yellow Able to tolerate fluids by mouth: Yes Treatments prior to arrival: ibuprofen Related Data Allergies Allergy/AdvReac Type Severity Reaction Status Date / Time No Known Allergies Allergy Verified 01/18/24 16:50 Review of Systems Review of Systems: CONSTITUTIONAL: Reports malaise, chills, sweats, or fever. EYES: Denies visual changes, redness, or discharge. ENT: Reports rhinorrhea, congestion, sinus pain, no otalgia and sore throat. CARDIOVASCULAR: Denies chest pain, palpitations, or edema. RESPIRATORY: Reports cough.? Denies dyspnea. some chest discomfort with cough GASTROINTESTINAL: Denies abdominal pain, nausea, vomiting, diarrhea SKIN: Denies rash or itching. MUSCULOSKELETAL:Reports myalgia. NEUROLOGIC: Reports headache. All systems reviewed & are unremarkable except as noted in HPI and below PMFSH Past Medical History Medical History Back pain Insomnia disorder Depression Anxiety Bronchitis Surgical History Surgical History No significant past surgical history Family History Family History Father Hypertension Mother Hypertension Social History Social History Smoking packs per day: 1 Smoking cigarettes per day: 20.0 Years smoked: 10 Smoking pack-years: 10.00 Smoking status: Current every day smoker Tobacco type: cigarettes Second hand tobacco smoke exposure: Yes Alcohol intake: current Alcohol use details: rarely Substance use: never Living arrangements: with family Additional living arrangements comments: [place]? Occupation/Education: occupation Gender identity (if verbalized by the patient): Male Sexual Orientation (if Verbalized by the Patient): Straight or Heterosexual Comments At time of signature, agree with nursing past medical, surgical, social and family history. There is no relevant family history pertinent to the presenting complaint Exam Narrative: GENERAL: Well-appearing, well-nourished, and in no acute distress. HEAD: Normocephalic EYES: PERRLA, conjunctivae clear ENT: Nares clear, turbinates edematous and erythematous, clear discharge. Mucous membranes moist. TM pearly aly with dull light reflex bilaterally; no tragal tenderness. Oropharynx erythematous without lesions. Tonsils not enlarged and without exudate, no drooling, no hoarseness, no trismus, uvula midline.post nasal drainage noted. NECK: Supple. No lymphadenopathy CHEST: Coarse breath sounds bases on auscultation, breath sounds equal. No wheezing, rhonchi, rales, or stridor. No respiratory distress, speaks in full sentences, productive cough.SAO2 99% on room air HEART: Regular rate and rhythm. No murmur heard. SKIN: Warm, dry, no rash. NEURO: Alert and oriented x3. PSYCH: Normal mood and affect Course Course Emergency Course: Patient is aware of diagnosis, understands and agrees to treatment plan.? Anticipatory guidance given.? Patient agrees to follow-up as directed and is aware of reasons to seek care at the emergency department. Portions of this record may have been created with voice recognition software Level of Care: Express Care Visit Vital Signs Vital signs: Vital Signs Temperature 36.4 C 04/09/24 11:38 Pulse Rate 99 04/09/24 11:38 Respiratory Rate 20 04/09/24 11:38 Blood Pressure 107/75 04/09/24 11:38 Pulse Oximetry 99 04/09/24 11:38 Oxygen Delivery Room Air 04/09/24 11:38 Temperature 36.4 C 01/12/25 11:38 Pulse Rate 99 04/09/24 11:38 Respiratory Rate 20 04/09/24 11:38 Blood Pressure 107/75 04/09/24 11:38 Pulse Oximetry 99 04/09/24 11:38 Oxygen Delivery Room Air 04/09/24 11:38 Reviewed MDM - URI/Sore Throat MDM Narrative Medical decision making narrative: Differential diagnosis considered: Silva virus, strep pharyngitis, allergic rhinitis, upper respiratory tract infection, sinusitis, rhinosinusitis, nasopharyngitis. viral pharyngitis, otitis media, otitis externa, pneumonia, bronchitis, viral cough syndrome, viral syndrome, and influenza.? Exam findings show no acute concerns or changes; patient is non-toxic appearing and is in no distress.? Patient is appropriate for outpatient treatment and follow-up. Differential Diagnosis Differential diagnosis: Likely upper respiratory infection, sinusitis, viral infection, bronchitis, influenza and other (COUGH, respiratory infection, tobacco abuse) Medical Records Attestation: I reviewed the patient's medical records. Lab Data Attestation: I reviewed the patient's lab results. Lab results narrative: influenza A negative, Influenza B negative, COVID antigen negative Critical Care Time Critical Care Time Critical Care Time: No Discharge Plan Discharge Clinical Impression: Respiratory infection, Cough in adult Patient Disposition: Home, Self-Care Condition: Stable Instructions: Antibiotic Form, Decongestant/Expectorant (By mouth), Acute Cough (ED) Additional Instructions: Increase fluids especially juices and water [id number] cough and cold medicine of your choice for your symptoms Tylenol or Ibuprofen for any pain or fever Zyrtec Claritin or Shanita daily include plain Sudafed for sinus drainage Steroids as directed--take with food heat to the face 20-30 minutes 4-6 times a day for pain Salt water gargles, throat lozenges or throat sprays as desired Antibiotic as directed--finished the medication If your symptoms persist, change or worsen significantly before you can contact your personal physician then please, without delay, go to the emergency department for further evaluation. Follow-up with PCP in 7-10 days or sooner if needed Monitor for fevers Patient Language: Romanian Prescriptions: New azithromycin 250 mg tablet See Rx Instructions .ROUTE .COMPLEX Qty: 6 0RF Rx Instructions: For 250 mg dose pack: take 500 mg today (day 1), then 250 mg for 4 days (days 2-5) prednisone 20 mg tablet 40 mg PO DAILY 5 Days Qty: 10 0RF Rx Instructions: take with food Follow-up/Referrals: Raissa,SHMUEL Doss [Primary Care Provider] - Time of Disposition: 12:17 Quality [place] Coma Scale Eyes: Open Verbal: Oriented and Alert Motor: Follows Commands [place] Coma Total Score: 15
[2024-04-09 12:24] LABS: EDCOVIDSCREEN Negative (Negative); EDINFLUASCREEN Negative (Negative); EDINFLUBSCREEN Negative (Negative)
== END 2024-04-09 12:24 | disposition home or self-care (01) ==
PROVIDERS: Emergency Provider Registered Nurse; PCP Physician Assistant
DX: J98.8 Other specified respiratory disorders (principal); R05.9 Cough, unspecified; Z20.822 Contact with and (suspected) exposure to COVID-19; F17.210 Nicotine dependence, cigarettes, uncomplicated
CPT/HCPCS: 87426; 87804; 99213; G0463

== ENCOUNTER 2024-05-30 08:33 | Emergency (ER) | payer SELFPAY ==
[2024-05-30 08:35] VITALS: BP 113/70; PULSE 94; RESP 20; TEMP 37.3; O2SAT 100
--- NOTE | 2024-05-30 09:25 | ED.GENADULT ---
HPI - General Adult General Chief complaint: Chest Pain Stated complaint: right side chest pain Time Seen by Provider: 05/30/24 09:25 Source: patient, RN notes reviewed and old records reviewed Mode of arrival: ambulatory Limitations: no limitations History of Present Illness HPI narrative: 28 year old male presents to [facility] care with complaints of having some right sided posterior neck pain for 3 days and today started having some right sided chest pain that radiates to his back. Patient reports that 4 days ago he was trying to see how many push ups he could do. Patient reports that it hurts to take a deep breath. Pain is reproducible with palpation to right mid chest region. Repirations are non labored with SAO2 100% on room air no tachypnea noted. Patient has not taken any OTC medications for his discomfort. Patient is daily smoker of 1ppd and also vapes. MD complaint: right chest sorenessd Onset (ago): day(s) (posterior neck pain 3 days and right chest discomfort this morning) Severity scale (1-10): 6 Quality: aching Treatments prior to arrival: none Related Data Allergies Allergy/AdvReac Type Severity Reaction Status Date / Time No Known Allergies Allergy Verified 05/30/24 08:55 Review of Systems Review of Systems: CONSTITUTIONAL: Denies fever, chills, or sweats. EYES: Denies visual changes, redness, or discharge. ENT: Denies rhinorrhea, congestion, sore throat, or otalgia. CARDIOVASCULAR: reports right sided chest pain,no palpitations, or edema. RESPIRATORY: Denies cough or dyspnea. GASTROINTESTINAL: Denies abdominal pain, nausea, vomiting, or diarrhea. GENITOURINARY: Denies dysuria or hematuria. SKIN: Denies rash or itching. MUSCULOSKELETAL: Denies back pain reports right sided neck pain, or myalgia. NEUROLOGIC: Denies headache, numbness, or weakness. PSYCHIATRIC: Denies anxiety or depression. All systems reviewed & are unremarkable except as noted in HPI and below PMFSH Past Medical History Medical History Back pain Insomnia disorder Depression Anxiety Bronchitis Surgical History Surgical History No significant past surgical history Family History Family History Father Hypertension Mother Hypertension Social History Social History Smoking packs per day: 1 Smoking cigarettes per day: 20.0 Years smoked: 10 Smoking pack-years: 10.00 Smoking status: Current every day smoker Tobacco type: cigarettes and e-cigarettes/vaping Second hand tobacco smoke exposure: Yes Alcohol intake: current Alcohol use details: rarely Substance use: never Living arrangements: with family Additional living arrangements comments: fianc? Occupation/Education: occupation Gender identity (if verbalized by the patient): Male Sexual Orientation (if Verbalized by the Patient): Straight or Heterosexual Comments At time of signature, agree with nursing past medical, surgical, social and family history. There is no relevant family history pertinent to the presenting complaint Exam Narrative: GENERAL: Well-appearing, well-nourished, and in no acute distress. HEAD: Normocephalic, atraumatic. EYES: PERRLA and EOMI. ENT: Nares clear, no rhinorrhea or epistaxis. Mucous membranes moist.TM's normal with good light reflex, throat pink with no swelling NECK: Supple. no lymphadenopathy, full ROM of neck with some aching discomfort to posterior right neck with no radiation CHEST: Clear to auscultation. No respiratory distress.no cough noted SAO2 100% on room air HEART: Regular rate and rhythm. No murmur heard. Normal peripheral pulses.reports some right sided chest pain which radiates to right side of back at times with increased pain with deep breath, pain is reproducible with palpation ABDOMEN: Soft, nontender, nondistended, normal active bowel sounds. EXTREMITIES: Normal range of motion. No edema. SKIN: Warm, dry, no rash. NEURO: No focal deficits. Alert and oriented x3. Course Course Emergency Course: Patient is aware of diagnosis, understands and agrees to treatment plan.? Anticipatory guidance given.? Patient agrees to follow-up as directed and is aware of reasons to seek care at the emergency department. Portions of this record may have been created with voice recognition software Level of Care: Express Care Visit Vital Signs Vital signs: Vital Signs Temperature 37.3 C 05/30/24 08:35 Pulse Rate 94 05/30/24 08:35 Respiratory Rate 20 05/30/24 08:35 Blood Pressure 113/70 05/30/24 08:35 Pulse Oximetry 100 05/30/24 08:35 Oxygen Delivery Room Air 05/30/24 08:35 Temperature 37.3 C 05/30/24 08:35 Pulse Rate 94 05/30/24 08:35 Respiratory Rate 20 05/30/24 08:35 Blood Pressure 113/70 05/30/24 08:35 Pulse Oximetry 100 05/30/24 08:35 Oxygen Delivery Room Air 05/30/24 08:35 Reviewed Medical Decision Making MDM Narrative Medical decision making narrative: Exam findings and imaging show no acute concerns or changes; patient is non-toxic appearing and is in no distress.? Patient is appropriate for outpatient treatment and follow-up Differential Diagnosis Differential Diagnosis: right neck strain, atypical chest pain right side, costochondritis. Vital Signs Vital Signs: Vital Signs Temperature 37.3 C 05/30/24 08:35 Pulse Rate 94 05/30/24 08:35 Respiratory Rate 20 05/30/24 08:35 Blood Pressure 113/70 05/30/24 08:35 Pulse Oximetry 100 05/30/24 08:35 Oxygen Delivery Room Air 05/30/24 08:35 Temperature 37.3 C 05/30/24 08:35 Pulse Rate 94 05/30/24 08:35 Respiratory Rate 20 05/30/24 08:35 Blood Pressure 113/70 05/30/24 08:35 Pulse Oximetry 100 05/30/24 08:35 Oxygen Delivery Room Air 05/30/24 08:35 Critical Care Time Critical Care Time Critical Care Time: No Discharge Plan Discharge Clinical Impression: Costochondritis, acute Strain of neck muscle Qualifiers: Encounter type: initial encounter Qualified Code(s): S16.1XXA - Strain of muscle, fascia and tendon at neck level, initial encounter Patient Disposition: Home, Self-Care Condition: Stable Instructions: Costochondritis (ED), Neck Pain (ED) Additional Instructions: Ice and heat to the area for 20-30 minutes Gentle stretching exercises Gentle massage Caution with lifting, bending, stooping, twisting Avoid pushing, pulling take muscle relaxants as directed--caution drowsiness and no driving or alcohol Anti-inflammatory medicine as directed--take with food He may take the muscle relaxant and anti-inflammatory at the same time Follow-up with your PCP if not improving in 5-7 days If your symptoms persist, change or worsen significantly before you can contact your personal physician then please, without delay, go to the emergency department for further evaluation. Follow-up with PCP in 7-10 days or sooner if needed Patient Language: Tajik Prescriptions: New prednisone 20 mg tablet 40 mg PO DAILY 5 Days Qty: 10 0RF cyclobenzaprine 10 mg tablet 10 mg PO HS PRN (Reason: muscle spasm) Qty: 10 0RF Follow-up/Referrals: Raissa,SHMUEL Doss [Primary Care Provider] - Stand Alone Forms: Work/School Release IP Time of Disposition: 09:38 Quality [place] Coma Scale Eyes: Open Verbal: Oriented and Alert Motor: Follows Commands [place] Coma Total Score: 15
== END 2024-05-30 09:45 | disposition home or self-care (01) ==
PROVIDERS: Emergency Provider Registered Nurse; PCP Physician Assistant
DX: M94.0 Chondrocostal junction syndrome [Tietze] (principal); S16.1XXA Strain of muscle, fascia and tendon at neck level, initial encounter; F41.8 Other specified anxiety disorders; F17.210 Nicotine dependence, cigarettes, uncomplicated; F17.290 Nicotine dependence, other tobacco product, uncomplicated
CPT/HCPCS: 99213; G0463

== ENCOUNTER 2024-08-07 17:26 | Emergency (ER) | payer SELFPAY ==
--- OUTSIDE RECORDS SUMMARY | 2024-08-07 17:31 | XMS_ITS | Clinical Summary ---
Author Organization [facility] Address [address] [place] [address] Phone Care Team Providers Care English As A Second Language Instructor Name Role Phone Unavailable Primary Care Provider Unavailabl e Allergies No known active allergies Medications promethazine-dex tromethorphan (PROMETHAZINE-DM ) 6.25-15 MG/5ML SyrupIndications :URI, acute Take 5 mL by mouth every 4 hours as needed for Cough. 240 mL 1 03/25/2016 Active Active Problems No known active problems Immunizations Immunization Administration Dates Next Due Meningococcal Vaccine 11/26/2008 TD VACCINE 11/26/2008 Social History Tobacco Use Types Packs/Day Years Used Date Smoking Tobacco: Every Day Smokeless Tobacco: Never Tobacco Cessation:Ready to Q uit: Yes; Counseling Given: Yes Alcohol Use Standard Drinks/Week Comments Yes 0 (1 standard drink = 0.6 oz pur e alcohol) socially Sexually Active Control Partners Comments Yes Sex and Gender Information Value Date Recorded Sex Assigned at Not on file Legal Sex Male 11:03 PM CDT Gender Identity Not on file Sexual Orientation Not on file Last Filed Vital Signs Vital Sign Reading Time Taken Comments Blood Pressure 100/60 03/25/2016 10:48 AM [facility] Pulse 68 03/25/2016 10:48 AM [facility] Temperature 37.4 C (99.4 F) 03/25/2016 10:48 AM [facility] Respiratory Rate 16 03/25/2016 10:48 AM [facility] Oxygen Saturation 98% 03/25/2016 10:48 AM [facility] Inhaled Oxygen Concentration - - Weight 50.3 kg (111 lb) 03/25/2016 10:48 AM [facility] Height 175.3 cm (5' 9 ) 03/25/2016 10:48 AM [facility] Body Mass Index 16.39 03/25/2016 10:48 AM [facility] Plan of Treatment Health Maintenance Due Date Last Done Comments Hepatitis C Virus (HCV) Screening 1993 TdaP Immunization 1993 Hepatitis B Immunization (1 of 3 - 19+ 3-dose series) 2012 Influenza Immunization (#1) 2023 SARS-COV-2 Immunization ( season) 2023 Respiratory Syncytial Virus (RSV) Immunization (Adult) (1 - 1-dose 75+ series) 2068 Meningococcal Immunization (ACWY) Aged Out 009 No longer eligible based on patient's age to complete this topic Pneumococcal Immunization Combined Aged Out No longer eligible based on patient's age to complete this topic Rotavirus Immunization Aged Out No lo nger eligible based on patient's age to complete this topic Insurance [facility]
[2024-08-07 17:36] VITALS: BP 116/77; PULSE 83; RESP 16; TEMP 36.8; O2SAT 100
[2024-08-07 17:51] LABS: EDSTREPNEGPOS1 Negative (Negative)
--- NOTE | 2024-08-07 18:17 | ED_ITS ---
HPI - URI/Sore Throat General Chief Complaint: Upper Respiratory Infection Stated Complaint: flu like symptoms Time Seen by Provider: 08/07/24 18:10 Source: patient, RN notes reviewed and old records reviewed Mode of arrival: ambulatory Limitations: no limitations History of Present Illness HPI Narrative: 29 year old male who presents to [facility] care with complaints of having 102F fever this morning having headache, body aches, cough with congestion since last night. Patient reports that he has had sore throat for the past 3 days. Patient reports that he took Ibuprofen this morning. Patient reports that son recently diagnosed with strep. MD elicited complaint: fever, cough, sore throat and other (body aches and headache) Onset (ago): day(s) (initial sore throat 3 days, cough congestion headache yesterday evening , this am fever) Consistency: progressively worsening Pain scale (0-10): 3 Able to tolerate fluids by mouth: Yes Treatments prior to arrival: ibuprofen Related Data Allergies Allergy/AdvReac Type Severity Reaction Status Date / Time No Known Allergies Allergy Verified 05/30/24 08:55 Review of Systems Review of Systems: CONSTITUTIONAL: reports malaise, chills, sweats, or fever. EYES: Denies visual changes, redness, or discharge. ENT: Reports rhinorrhea, congestion, no sinus pain, no otalgia and positive for sore throat. CARDIOVASCULAR: Denies chest pain, palpitations, or edema. RESPIRATORY: Reports cough.? Denies dyspnea. GASTROINTESTINAL: Denies abdominal pain, nausea, vomiting, diarrhea SKIN: Denies rash or itching. MUSCULOSKELETAL: Reports myalgia NEUROLOGIC: Reports headache. All systems reviewed & are unremarkable except as noted in HPI and below PMFSH Past Medical History Medical History Back pain Insomnia disorder Depression Anxiety Bronchitis Surgical History Surgical History No significant past surgical history Family History Family History Father Hypertension Mother Hypertension Social History Social History Smoking packs per day: 1 Smoking cigarettes per day: 20.0 Years smoked: 10 Smoking pack-years: 10.00 Smoking status: Current every day smoker Tobacco type: cigarettes and e-cigarettes/vaping Second hand tobacco smoke exposure: Yes Alcohol intake: current Alcohol use details: rarely Substance use: never Living arrangements: with family Additional living arrangements comments: [place]? Occupation/Education: occupation Gender identity (if verbalized by the patient): Male Sexual Orientation (if Verbalized by the Patient): Straight or Heterosexual Comments At time of signature, agree with nursing past medical, surgical, social and family history. There is no relevant family history pertinent to the presenting complaint Exam Narrative: GENERAL: Well-appearing, fair-nourished, and in no acute distress. HEAD: Normocephalic EYES: PERRLA, conjunctivae clear ENT: Nares clear, turbinates edematous and erythematous, clear discharge. Mucous membranes moist. TM pearly aly with dull light reflex bilaterally; no tragal tenderness. Oropharynx erythematous without lesions. Tonsils not enlarged and without exudate, no drooling, no hoarseness, no trismus, uvula midline and red, post nasal drainage. NECK: Supple. No lymphadenopathy CHEST: faint wheezing on auscultation, breath sounds equal.+ wheezing, no rhonchi, rales, or stridor. No respiratory distress, speaks in full sentences.SAO2 100% on room air cough productive at times HEART: Regular rate and rhythm. No murmur heard. SKIN: Warm, dry, no rash. NEURO: Alert and oriented x3. PSYCH: Normal mood and affect Course Course Emergency Course: Patient is aware of diagnosis, understands and agrees to treatment plan.? Anticipatory guidance given.? Patient agrees to follow-up as directed and is aware of reasons to seek care at the emergency department. Portions of this record may have been created with voice recognition software Level of Care: Express Care Visit Vital Signs Vital signs: Vital Signs Temperature 36.8 C 08/07/24 17:36 Pulse Rate 83 08/07/24 17:36 Respiratory Rate 16 08/07/24 17:36 Blood Pressure 116/77 08/07/24 17:36 Pulse Oximetry 100 08/07/24 17:36 Oxygen Delivery Room Air 08/07/24 17:36 Temperature 36.8 C 08/07/24 17:36 Pulse Rate 83 08/07/24 17:36 Respiratory Rate 16 08/07/24 17:36 Blood Pressure 116/77 08/07/24 17:36 Pulse Oximetry 100 08/07/24 17:36 Oxygen Delivery Room Air 08/07/24 17:36 Reviewed MDM - URI/Sore Throat MDM Narrative Medical decision making narrative: Differential diagnosis considered: Silva virus, strep pharyngitis, allergic rhinitis, upper respiratory tract infection, sinusitis, rhinosinusitis, nasopharyngitis. viral pharyngitis, otitis media, otitis externa, pneumonia, bronchitis, viral cough syndrome, viral syndrome, and influenza.? Exam findings show no acute concerns or changes; patient is non-toxic appearing and is in no distress.? Patient is appropriate for outpatient treatment and follow-up. Differential Diagnosis Differential diagnosis: Likely upper respiratory infection, viral infection, bronchitis, pharyngitis and other (strep pharyngitis, cough, tobacco abuse) Medical Records Attestation: I reviewed the patient's medical records. Lab Data Attestation: I reviewed the patient's lab results. Lab results narrative: strep screen negative culture sent Labs: Lab Results 08/07/24 Range/Units 17:35 POC Grp A Strep Screen Negative (Negative) reviewed Critical Care Time Critical Care Time Critical Care Time: No Discharge Plan Discharge Clinical Impression: Bronchitis Pharyngitis Qualifiers: Pharyngitis/tonsillitis etiology: unspecified etiology Qualified Code(s): J02.9 - Acute pharyngitis, unspecified Patient Disposition: Home Condition: Stable Instructions: Antibiotic Form, Pharyngitis (ED), Acute Bronchitis (ED) Additional Instructions: Increase fluids especially juices and water [id number] cough and cold medicine of your choice for your symptoms Zyrtec, Claritin, or Shanita daily Continue your inhaler/nebulizer as directed Steroids as directed--take with food heat to the face 20-30 minutes 4-6 times a day for pain Salt water gargles, throat lozenges or throat sprays as desired Antibiotic as directed--finish the medication If your symptoms persist, change or worsen significantly before you can contact your personal physician then please, without delay, go to the emergency de partment for further evaluation. Follow-up with PCP in 7-10 days or sooner if needed STOP SMOKING Patient Language: Icelandic Prescriptions: New prednisone 20 mg tablet 40 mg PO DAILY 5 Days Qty: 10 0RF azithromycin 250 mg tablet See Rx Instructions .ROUTE .COMPLEX Qty: 6 0RF Rx Instructions: For 250 mg dose pack: take 500 mg today (day 1), then 250 mg for 4 days (days 2-5) Follow-up/Referrals: Raissa,SHMUEL Doss [Primary Care Provider] - Stand Alone Forms: Work/School Release IP Time of Disposition: 18:30 Quality [place] Coma Scale Eyes: Open Verbal: Oriented and Alert Motor: Follows Commands [place] Coma Total Score: 15
== END 2024-08-07 18:36 | disposition home or self-care (01) ==
PROVIDERS: Emergency Provider Registered Nurse; PCP Physician Assistant
DX: J40 Bronchitis, not specified as acute or chronic (principal); J02.9 Acute pharyngitis, unspecified; F17.210 Nicotine dependence, cigarettes, uncomplicated; F17.290 Nicotine dependence, other tobacco product, uncomplicated
CPT/HCPCS: 87081; 87880; 99213; G0463

== ENCOUNTER 2025-03-19 14:59 | Emergency (ER) | payer SELFPAY ==
--- NOTE | ~2025-03-19 | XR_ITS ---
EXAMINATION: XR chest 2V 03/19/2025 15:29 INDICATION: Cough. Mid sternal chest/back pain with inspiration PROCEDURE: 2 view chest COMPARISON: Comparison to multiple prior studies sequentially, with oldest reviewed study dated 07/23/2027. FINDINGS: The lungs are clear. The cardiomediastinal silhouette is within normal limits. There are no pleural effusions. There is no pneumothorax suspected. IMPRESSION: 1: NO ACUTE CARDIOPULMONARY DISEASE. Reviewed, dictated and finalized at location O. R [employer]
--- NOTE | 2025-03-19 15:02 | ED_ITS ---
HPI - URI/Sore Throat General Chief Complaint: Upper Respiratory Infection Stated Complaint: Chest Congestion/Cough/Back Pain Time Seen by Provider: 03/19/25 15:02 Source: patient Mode of arrival: ambulatory Limitations: no limitations History of Present Illness HPI Narrative: Juan is a 29 year old male patient presenting to the clinic today with chest congestion, cough, and back pain x 1 day. He reports cough is non-productive. He vapes nicotine and THC. No URI symptoms. Midsternal chest discomfort and mid upper back pain with inspiration. Related Data Allergies Allergy/AdvReac Type Severity Reaction Status Date / Time No Known Allergies Allergy Verified 05/30/24 08:55 Review of Systems Review of Systems: Pertinent positives per HPI. Patient denies any fever, chills, rash, headache, visual changes, dizziness, shortness of breath, chest pain, palpitations, nausea, vomiting, diarrhea, constipation, abdominal pain, or any urinary issues. PMFSH Past Medical History Medical History Back pain Insomnia disorder Depression Anxiety Bronchitis Surgical History Surgical History No significant past surgical history Family History Family History Father Hypertension Mother Hypertension Social History Social History Smoking packs per day: 1 Smoking cigarettes per day: 20.0 Years smoked: 10 Smoking pack-years: 10.00 Smoking status: Current every day smoker Tobacco type: cigarettes and e-cigarettes/vaping Second hand tobacco smoke exposure: Yes Alcohol intake: current Alcohol use details: rarely Substance use: never Living arrangements: with family Additional living arrangements comments: fianc? Occupation/Education: occupation Gender identity (if verbalized by the patient): Male Sexual Orientation (if Verbalized by the Patient): Straight or Heterosexual Comments At the time of my signature, I reviewed and agree with the nursing past medical, surgical, social, and family history. There is no relevant family history pertinent to the patient complaint. Exam Narrative: General: Well-developed, well nourished, in no apparent distress Head: Normocephalic, atraumatic Eyes: Pupils equally round and reactive to light bilaterally, EOM intact, sclera and conjunctive clear, no discharge, lids normal Ears: TMs intact and clear, ear canals clear, no drainage, grossly hearing normal. Nose: Nares patent, no discharge, no inflammation, no sinus tenderness. Mouth: Oral pharynx without lesions or masses, good dentition, MMM. Neck: Supple, trachea midline, no enlargement of anterior or posterior cervical nodes, no thyroid masses or goiter palpable. Chest wall: Even rise and fall of the chest wall with respirations, nontender to palpation over the anterior chest wall Cardio: Regular rate and rhythm, s1 and s2 normal, no murmur appreciated. Resp: Clear to auscultation bilaterally, no rhonchi, rales, wheezing or rubs Course Course Level of Care: Express Care Visit Vital Signs Vital signs: Vital Signs Temperature 36.6 C 03/19/25 15:06 Pulse Rate 90 03/19/25 15:06 Respiratory Rate 16 03/19/25 15:06 Blood Pressure 119/72 03/19/25 15:06 Pulse Oximetry 100 03/19/25 15:06 Oxygen Delivery Room Air 03/19/25 15:06 Temperature 36.6 C 03/19/25 15:06 Pulse Rate 90 03/19/25 15:06 Respiratory Rate 16 03/19/25 15:06 Blood Pressure 119/72 03/19/25 15:06 Pulse Oximetry 100 03/19/25 15:06 Oxygen Delivery Room Air 03/19/25 15:06 [facility] Narrative Medical decision making narrative: At the time of visit patient is resting comfortably on the exam table. Patient appears to be nontoxic. Complaints of chest congestion, cough, and back pain x 1 day. He reports cough is non-productive. He vapes nicotine and THC. No URI symptoms. Midsternal chest discomfort and mid upper back pain with inspiration. On exam patient has bilateral TMs intact and clear, no nasal drainage, no anterior turbinate inflammation, oral pharynx normal, no cervical lymphadenopathy, heart rates regular rate and rhythm, lung sounds are clear. Nontender to palpation over the anterior chest wall. Chest x-ray was ordered. Diagnostics: Chest x-ray was performed in the clinic today and was negative for any acute cardiopulmonary process. No sign of pneumo Plan: I suspect patient has acute cough with pleuritic chest pain. Recommend discontinuation of smoking. May take 600 mg to 800 mg of ibuprofen every 8 hours. Supportive measures were discussed with the patient and they voiced understanding discharge instructions and agrees to treatment plan. Return precautions reviewed Differential Diagnosis Differential Diagnosis: Differential diagnostic considerations for upper respiratory infection include upper respiratory infection, croup, otitis media, sinusitis, viral infection, bronchitis, influenza, pharyngitis, strep, uvulitis, pneumonia. Imaging Data Radiologist's impression: ITS Impressions Chest X-Ray 03/19/25 15:30 IMPRESSION: 1: NO ACUTE CARDIOPULMONARY DISEASE. Discharge Plan Discharge Clinical Impression: Acute cough, Anterior pleuritic pain Patient Disposition: Home Condition: Stable Instructions: Antibiotic Form, Pleurisy (ED), Acute Cough (ED) Additional Instructions: Chest x-rays negative for any acute cardiopulmonary process. Lung sounds are clear in the clinic and there is no sign of bacterial infection at this time. Recommend taking 600mg 800mg of ibuprofen every 8 hours as needed for pain Increase fluids and stay well hydrated Follow-up with your primary care doctor in 5-7 days if symptoms persist Patient Language: Icelandic Follow-up/Referrals: Raissa,SHMUEL Doss [Primary Care Provider] Time of Disposition: 15:39 Quality NIHSS Nursing Documentation ED NIHSS nursing documentation: reviewed/agree
[2025-03-19 15:06] VITALS: BP 119/72; PULSE 90; RESP 16; TEMP 36.6; O2SAT 100
--- OUTSIDE RECORDS SUMMARY | 2025-03-19 16:39 | XMS_ITS | Clinical Summary ---
Author Organization [facility] Address [address] [place] [address] Phone Care Team Providers Care Md Ophthalmologist Name Role Phone Unavailable Primary Care Provider [...] Comments Blood Pressure 100/60 03/25/2016 10:48 AM TELEHEALTH NURSE Pulse 68 03/25/2016 10:48 AM TELEHEALTH NURSE Temperature 37.4 C (99.4 F) 03/25/2016 10:48 AM TELEHEALTH NURSE Respiratory Rate 16 03/25/2016 10:48 AM TELEHEALTH NURSE Oxygen Saturation 98% 03/25/2016 10:48 AM TELEHEALTH NURSE Inhaled Oxygen Concentration - - Weight 50.3 kg (111 lb) 03/25/2016 10:48 AM TELEHEALTH NURSE Height 175.3 cm (5' 9) 03/25/2016 10:48 AM TELEHEALTH NURSE Body Mass Index 16.39 03/25/2016 10:48 AM TELEHEALTH NURSE Plan of Treatment Health Maintenance Due Date Last Done Comments Hepatitis C Virus (HCV) Screening 1993 TdaP Immunization 1993 Hepatitis B Immunization (1 of 3 - 19+ 3-dose series) 2012 Human Papillomavirus (HPV) Immunization (1 - 3-dose SCDM series) 2020 Influenza Immunization (#1) 2024 SARS-COV-2 Immunization ( - season) 2024 Respiratory Syncytial Virus (RSV) Immunization (Adult) (1 - 1-dose 75+ series) 2068 Meningococcal Immunization (ACWY) Aged Out 009 No longer eligible based on patient's age to complete this topic Pneumococcal Immunization Combined Aged Out No longer eligible based on patient's age to complete this topic Rotavirus Immunization Aged Out No lo nger eligible based on patient's age to complete this topic Insurance [facility]
== END 2025-03-19 15:40 | disposition home or self-care (01) ==
PROVIDERS: Emergency Provider Nurse Practitioner Family; PCP Physician Assistant
DX: R05.1 Acute cough (principal); R07.81 Pleurodynia; F17.210 Nicotine dependence, cigarettes, uncomplicated; F17.290 Nicotine dependence, other tobacco product, uncomplicated; F12.90 Cannabis use, unspecified, uncomplicated
CPT/HCPCS: 71046; 99213; G0463

== ENCOUNTER 2025-03-20 18:37 | Emergency (ER) | payer SELFPAY ==
[2025-03-20 18:47] VITALS: BP 130/75; PULSE 86; RESP 16; TEMP 36.8; O2SAT 99
--- NOTE | 2025-03-20 18:53 | ED.URI ---
HPI - URI/Sore Throat General Chief Complaint: Upper Respiratory Infection Stated Complaint: Sore throat, Chest pain Time Seen by Provider: 03/20/25 18:50 Source: patient, RN notes reviewed and old records reviewed Mode of arrival: ambulatory Limitations: no limitations History of Present Illness HPI Narrative: Juan is a 29-year-old male patient presenting to the clinic today with complaints of fever, sore throat, productive cough with yellow phlegm, and mid/left-sided chest pain radiating to his back that worsens when he takes a deep breath. He states he feels as though he can not take a deep breath in due to the pain. Was seen in the [facility] yesterday only complaining about a dry cough and chest discomfort on the left side radiating into the back. Chest x-ray was done and was negative at that time. Diagnosed with pleuritic chest pain-recommended to stop smoking and take ibuprofen 3 times daily. Reports he has taken approximately 4 doses of ibuprofen and has not had much relief. HPI from 03/19/2025- Juan is a 29 year old male patient presenting to the clinic today with chest congestion, cough, and back pain x 1 day. He reports cough is non-productive. He vapes nicotine and THC. No URI symptoms. Midsternal chest discomfort and mid upper back pain with inspiration. Related Data Allergies Allergy/AdvReac Type Severity Reaction Status Date / Time No Known Allergies Allergy Verified 03/20/25 18:42 Review of Systems Review of Systems: Pertinent positives per HPI. Patient denies any rash, headache, visual changes, dizziness, palpitations, nausea, vomiting, diarrhea, constipation, abdominal pain, or any urinary issues. [facility] Past Medical History Medical History Back pain Insomnia disorder Depression Anxiety Bronchitis Surgical History Surgical History No significant past surgical history Family History Family History Father Hypertension Mother Hypertension Social History Social History Smoking packs per day: 1 Smoking cigarettes per day: 20.0 Years smoked: 10 Smoking pack-years: 10.00 Smoking status: Current every day smoker Tobacco type: cigarettes and e-cigarettes/vaping Second hand tobacco smoke exposure: Yes Alcohol intake: current Alcohol use details: rarely Substance use: never Living arrangements: with family Additional living arrangements comments: fianc? Occupation/Education: occupation Gender identity (if verbalized by the patient): Male Sexual Orientation (if Verbalized by the Patient): Straight or Heterosexual Comments At the time of my signature, I reviewed and agree with the nursing past medical, surgical, social, and family history. There is no relevant family history pertinent to the patient complaint. Exam Narrative: General: Well-developed, well nourished, in no apparent distress Head: Normocephalic, atraumatic Eyes: Pupils equally round and reactive to light bilaterally, EOM intact, sclera and conjunctive clear, no discharge, lids normal Ears: TMs intact and clear, ear canals clear, no drainage, grossly hearing normal. Nose: Nares patent, clear discharge, mild inflammation, no sinus tenderness. Mouth: Oral pharynx red without lesions or masses, good dentition, MMM. Neck: Supple, trachea midline, no enlargement of anterior or posterior cervical nodes, no thyroid masses or goiter palpable. Cardio: Regular rate and rhythm, s1 and s2 normal, no murmur appreciated. Resp: Clear to auscultation bilaterally, no rhonchi, rales, wheezing or rubs Course Course Level of Care: Express Care Visit Vital Signs Vital signs: Vital Signs Temperature 36.8 C 03/20/25 18:47 Pulse Rate 86 03/20/25 18:47 Respiratory Rate 16 03/20/25 18:47 Blood Pressure 130/75 03/20/25 18:47 Pulse Oximetry 99 03/20/25 18:47 Oxygen Delivery Room Air 03/20/25 18:47 Temperature 36.8 C 03/20/25 18:47 Pulse Rate 86 03/20/25 18:47 Respiratory Rate 16 03/20/25 18:47 Blood Pressure 130/75 03/20/25 18:47 Pulse Oximetry 99 03/20/25 18:47 Oxygen Delivery Room Air 03/20/25 18:47 [facility] MDM Narrative Medical decision making narrative: At the time of visit patient is resting comfortably on the exam table. Patient appears to be nontoxic. Complaints of fever, sore throat, productive cough with yellow phlegm, and mid/left-sided chest pain radiating to his back that worsens when he takes a deep breath. He states he feels as though he can not take a deep breath in due to the pain. Was seen in the [facility] yesterday only complaining about a dry cough and chest discomfort on the left side radiating into the back. Chest x-ray was done and was negative at that time. Diagnosed with pleuritic chest pain-recommended to stop smoking and take ibuprofen 3 times daily. Reports he has taken approximately 4 doses of ibuprofen and has not had much relief. On exam patient has bilateral TMs intact and clear, clear nasal nasal drainage, no anterior turbinate inflammation, no sinus tenderness, oral pharynx mildly red, no cervical lymphadenopathy, lung sounds are clear, heart rates regular rate and rhythm. Wells criteria score 0 points putting him in a low risk group for PE. COVID, flu, and strep test were ordered. EKG was ordered. EKG: EKG shows sinus rhythm with marked right axis deviation and incomplete right bundle-branch block with heart rate of 92 beats per minute. No ST elevation or depression noted. Labs: COVID, flu, and strep test were completed and negative in the clinic today. Plan: I suspect patient has URI/pharyngitis/pleuritic like chest pain. Chest x-ray was completed yesterday and is negative. Vital signs are stable on oxygen saturations 99% on room air. Patient is able speak in full sentences. EKG is reassuring and labs were negative. Will send in prescription for albuterol inhaler as needed for cough, shortness breath, or wheezing, prednisone, Tessalon Perles, and baclofen. Supportive measures were discussed with the patient and they voiced understanding discharge instructions and agrees to treatment plan. Return precautions reviewed Well criteria for PE: 0.0?points Low risk group: 1.3% chance of PE in an ED population. Another study assigned scores <= as ?PE Unlikely? and had a 3% incidence of PE. Differential Diagnosis Differential Diagnosis: Differential diagnostic considerations for upper respiratory infection include upper respiratory infection, croup, otitis media, sinusitis, viral infection, bronchitis, influenza, pharyngitis, strep, uvulitis. Lab Data Labs: Lab Results 03/20/25 Range/Units 19:25 POC Influenza A Ag Negative (Negative) POC Influenza B Ag Negative (Negative) POC SARS CoV-2 Ag Negative (Negative) POC Grp A Strep Screen Negative (Negative) ECG Data EKG #1: Attestation: I personally reviewed and interpreted this ECG as follows: ECG completion date: 03/20/25 ECG completion time: 19:16 Prior ECG tracings: not available for review Interpretation: EKG shows sinus rhythm with marked right axis deviation with incomplete right bundle-branch block. No ST elevation or depression noted. Heart rates 92 beats per minute. GA interval is 153 milliseconds, QRS durations 99 milliseconds, QT-QTC is 312-361 milliseconds, P-R-T axis is 80 101 65 Discharge Plan Discharge Clinical Impression: Chest pain with painful respiration Upper respiratory infection Qualifiers: URI type: unspecified URI Qualified Code(s): J06.9 - Acute upper respiratory infection, unspecified Pharyngitis Qualifiers: Pharyngitis/tonsillitis etiology: unspecified etiology Qualified Code(s): J02.9 - Acute pharyngitis, unspecified Patient Disposition: Home Condition: Stable Instructions: Antibiotic Form, Pleurisy (ED), Pharyngitis (ED), Upper Respiratory Infection (ED) Additional Instructions: EKGs reassuring in the clinic today Lung sounds are clear-oxygen saturations 99% on room air Stop smoking Take prescription medications only as prescribed-Tessalon Perles, albuterol inhaler, and prednisone Increase fluids and stay well hydrated May take Tylenol or motrin as directed on bottle for pain/fever May use Flonase 1 spray in each nare daily May take OTC antihistamines such as Zyrtec or Claritin daily as directed on bottle May apply Vicks vapor rub to chest to open sinuses Sinus rinses for congestion Cepacol spray, cough drops, throat lozenges, warm tea with honey/lemon, gargle salt water to soothe throat BRAT diet for diarrhea Clear liquids x 24 hours then advance as tolerated for nausea/vomiting Go to the ED if you develop a worsening in your condition- high fever not controlled by Tylenol or Motrin, dehydration, weakness, lethargy, shortness of breath, or chest pain. Follow up with your PCP in 3-5 days if symptoms persist. Patient Language: Greenlandic Prescriptions: New benzonatate 200 mg capsule 200 mg PO TID 7 Days Qty: 21 0RF prednisone 20 mg tablet 40 mg PO DAILY 5 Days Qty: 10 0RF albuterol sulfate 90 mcg/actuation HFA aerosol inhaler 2 puff inhalation Q4-6H PRN (Reason: shortness of breath or wheezing) 30 Days Qty: 8.5 0RF baclofen 10 mg tablet 10 mg PO TID 7 Days Qty: 21 0RF Follow-up/Referrals: Raissa,SHMUEL Doss [Primary Care Provider] Time of Disposition: 19:29 Quality NIHSS Nursing Documentation ED NIHSS nursing documentation: reviewed/agree
--- NOTE | 2025-03-20 19:07 | ECG_ITS ---
Test Date: 2025-03-20 19:16:19 Measurements Intervals [place] Rate: 92 P: 80 PA: 153 QRS: 101 QRSD: 99 T: 65 QT: 312 QTc: 386 Interpretive Statements SINUS RHYTHM RIGHT AXIS DEVIATION INCOMPLETE RIGHT BUNDLE BRANCH BLOCK BASELINE ARTIFACT- II, III, AVF BORDERLINE ECG No previous ECG available for comparison Electronically Signed On 03-20-2025 20:41:55 [employer] by Juan M Ashby D.O.
[2025-03-20 19:28] LABS: EDCOVIDSCREEN Negative (Negative); EDINFLUASCREEN Negative (Negative); EDINFLUBSCREEN Negative (Negative); EDSTREPNEGPOS1 Negative (Negative)
== END 2025-03-20 19:35 | disposition home or self-care (01) ==
PROVIDERS: Emergency Provider Nurse Practitioner Family; PCP Physician Assistant
DX: R07.1 Chest pain on breathing (principal); J06.9 Acute upper respiratory infection, unspecified; J02.9 Acute pharyngitis, unspecified; Z20.822 Contact with and (suspected) exposure to COVID-19; R09.1 Pleurisy; F17.290 Nicotine dependence, other tobacco product, uncomplicated; F12.90 Cannabis use, unspecified, uncomplicated
CPT/HCPCS: 87081; 87426; 87804; 87880; 93005; 99213; G0463